=== PATIENT | female | born 1975 | race Caucasian/White ===

== ENCOUNTER → 2022-01-25 | Outpatient (CLI) | payer BC ==
[~2022-01-25] MED LIST: DOCUSATE SODIU250 MG PO; HYDROCODONE-AC1 EACH PO; IBUPROFEN600 MG PO; TOPAMAX100 MG PO; WELLBUTRIN XL300 M1 PO
[2022-01-25 10:11] LABS: HEMOGLOBIN 14.6 gm/dl (12.3-15.3); RED BLOOD COUNT 4.57 M/UL (4.00-5.10)
== END ==
LOC: OPSV2 09:00
PROVIDERS: Obstetrics & Gynecology
DX: Z01.812 Encounter for preprocedural laboratory examination (principal); R10.2 Pelvic and perineal pain; Z88.8 Allergy status to other drugs, medicaments and biological substances
CPT/HCPCS: 36415; 81001; 85025

== ENCOUNTER → 2022-01-26 | Day surgery (SDC) | payer BC | END | disposition home or self-care (01) | LOC: OR 07:29 | DX: N72 Inflammatory disease of cervix uteri (principal); D25.1 Intramural leiomyoma of uterus; N80.0 Endometriosis of uterus; N92.0 Excessive and frequent menstruation with regular cycle; N28.9 Disorder of kidney and ureter, unspecified; Z98.51 Tubal ligation status; Z88.8 Allergy status to other drugs, medicaments and biological substances; Z79.899 Other long term (current) drug therapy | CPT/HCPCS: 93005; C1769; J0690; J1100; J1885; J2001; J2250; J2405; J2704; J3010; J7120 ==